=== PATIENT | female | born 1950 | race Caucasian/White ===

== ENCOUNTER → 2016-02-23 | Day surgery (SDC) | payer MEDICARE, OTHER ==
[~2016-02-23] MED LIST: ASPI81TA82 PO; BUPIVACAINE HCL PF 0.25% 30 ML VIAL ONE; EZET10 PO; HYDR25 PO; IBUP800 PO; KETOROLAC TROMETHAMINE 30 MG/ML (IVP) VIAL IV PUSH ONE; LACTATED RINGER'S 1000 ML INJ 1,000 ML ONE; LIDOCAINE HCL 1% PF 30 ML VIAL ONE; LORTA5 PO; NEXI20CA PO; ONDANSETRON HCL 4 MG/2 ML VIAL IV PUSH ONE; PROP20TA24 PO; PROPOFOL 200 MG/20 ML AMP IV ONE; ZOLP1TAB32 PO; ceFAZolin 2 GM PREMIX 50 ML ONE; ceFAZolin INJ 1,000 MG VIAL ONE
--- NOTE | 2016-02-26 08:00 | MP ---
cc: JUAN F KC Corrected Copy: 03/04/16 DATE OF SURGERY: 02/23/2016 PREOPERATIVE DIAGNOSIS Right leg foreign body with posterior tibial tendon partial tear. POSTOPERATIVE DIAGNOSIS Right leg foreign body with posterior tibial tendon partial tear. SURGEON Dr. Juan F Kc LAUNDRY LABORER GALDINO Giordano The surgical procedure was assisted by my Advanced Registered Nurse Practitioner. My LONG WINDER TENDER presence was necessary throughout this case for the manipulation and positioning of the surgical extremity. My LONG WINDER TENDER was assisting me throughout the duration of this procedure. The skill set of an Advanced Registered Nurse Practitioner was medically necessary to complete this procedure. During the surgical case, the salesperson surgical appliances was working at the back table and the Advanced Registered Nurse Practitioner was directly assisting me. PROCEDURE 1. Right leg irrigation and debridement with removal of foreign body. 2. Right ankle posterior tibial tendon debridement with repair. 3. Right ankle tenolysis of posterior tibial tendon. ESTIMATED BLOOD LOSS Minimal. TOURNIQUET TIME 22 minutes at 250 mmHg pressure. DETAILS OF PROCEDURE The patient was brought back to the operative theatre, general anesthesia was administered. We did hold off on intravenous antibiotics until we obtained cultures. The right lower extremity was exsanguinated. The tourniquet was raised after prepping and draping. We identified the area where she was having the pain and we also saw the previous small brown puncture healed area on the skin. We made an incision through that and then followed the course of the posterior tibial tendon up the medial aspect of the ankle. As soon as we incised through skin we saw that there was some underlying scar tissue and there was a tract that was following up towards the posterior tibial tendon. We followed this tract and we found a small punctate about 2 mm x 1 mm foreign body in the soft tissues. This was removed. There was a very minuscule amount of fluid surrounding it. We continued dissecting down following this tract and we found that it went into the posterior tibial tendon sheath. We incised the sheath which was very thickened and then we followed this up proximally and distally until we could reach normal-looking tendon. On inspection of the deep sheath of the tendon we found that there was about 2 cc of clearish fluid that was expressed. We took a culture of this and then we gave intravenous antibiotics. We further inspected the tendon which showed about a 20% tear with significant frayed edges. This was right around the area that it hooked around the medial malleolus. There was quite a bit of granulation tissue that was on top of the tendon itself. We did remove the granulation tissue and we sent this for a tissue culture. So overall we had two cultures, one a swab and one a tissue. We debrided edges of the tendon. About 80% of the tendon remained. Small edges of the tendon were repaired. The tourniquet was released. We thoroughly irrigated the wound. We then repaired the incised and also the traumatically lacerated tendon sheath using interval stitches with 3-0 Monocryl. We placed local anesthetic into the skin and then closed with 3-0 Monocryl followed by 3-0 nylon. The leg was dressed. The postoperative plan is we are going to have the patient initially be non-weightbearing but start early range of motion. We are additionally going to provide a prescription for Levaquin for seven days while we follow the cultures to make sure no deep infection was found in those cultures. MD RUBIA Grove/ADRIAAN /2:49 PM /10:21 AM
== END | disposition home or self-care (01) ==
LOC: ESDC 12:36
PROVIDERS: ATTEND Orthopaedic Surgery
DX: S91.041A Puncture wound with foreign body, right ankle, initial encounter (principal); M76.821 Posterior tibial tendinitis, right leg
CPT/HCPCS: 00400; 20520; 28200; 87015; 87070; 87102; 87116; 87205; 87206; 88305; 88311; J0690; J1885; J2405; J3010; J7120